=== PATIENT | female | born 1980 | race African-American/Black ===

== ENCOUNTER 2019-05-11 07:01 | Inpatient (IN) | payer MEDICARE ==
[2019-05-11] MEDS ORDERED: Magnesium 2 GM/50 ML BAG (IN WATER) ONE (07:17)
[2019-05-11] MEDS ORDERED: Dexamethasone 10 MG/ML VIAL ONE (07:18)
[2019-05-11] MEDS ORDERED: Albuterol Sulfate 2.5 mg/0.5 ml Neb ONE ×2 (07:22)
[2019-05-11 07:45] LABS: Actual Bicarbonate (HCO3a) 24.2 mEq/L (22-28); Analyzer IN Cardio ER; Base Excess (BEa) -2.6 mEq/L (-2.0 to +3.0); CO2 Tension 51.5 mmHg (35.0-45.0); Calcium, Ionized 1.15 mmol/L (1.12-1.30); Carboxyhemoglobin (COHb) 0.6 gm% (0.0-3.0); Hemoglobin (Hb) 9.6 g/dL (12.0-16.0); O2 Tension (PaO2) 61.2 mmHg (80.0-100.0); Potassium - ABG Lab 4.25 mmol/L (3.70-5.30); pH, Arterial 7.29 (7.35-7.45)
[2019-05-11 07:47] LABS: ALV-art Gradient 102.585 (0-20); Puncture Site RRA
--- NOTE | 2019-05-11 08:30 | PDOC.FPRHP ---
- History of Present Illness Chief Complaint: SOB History of Present Illness: 38 yo female with known history of asthma and MG presents for evaluation of acute onset SOB. Patient reports she has felt increasing cough and SOB over the last 2-3 days and then she developed sudden worsening of her symptoms overnight. She then presented to ED in [place] for transfer to [facility]. She reports being compliant with all of her medications including her albuterol and steroids at home. She notes that she feels much better with the O2 in the nose at this time. She reports pain in her chest during this time as well. She does admit to diarrhea, but no fevers, sputum production, or vomiting. No other complaints. ED Course: CXR showed left pneumectomy CTA chest showed no PE 750 ml Levaquin 1L NS - Allergies/Adverse Reactions Allergies Allergy/AdvReac Type Severity Reaction Status Date / Time No Known Allergies Allergy Verified 05/11/19 10:38 - Home Medications Medication Instructions Recorded Confirmed Type Albuterol Sulfate [Proventil Hfa] 2 puff INH Q4HR PRN 08/05/16 05/11/19 History Beclomethasone 80 mcg/puff [Qvar] 2 puff INH BID 08/05/16 05/11/19 History Acetaminophen W/ Codeine 2 tab PO Q4H PRN 05/11/19 05/11/19 History [Acetaminophen/Codeine #3] Albuterol Sulfate [Proair HFA] 1 - 2 puff INH Q4HR PRN 05/11/19 05/11/19 History Budesonide-Formoterol [Symbicort 2 puff INH BID 05/11/19 05/11/19 History 160-4.5] FLUoxetine HCl [Sarafem] 20 mg PO HS 05/11/19 05/11/19 History Gabapentin 300 mg PO TID 05/11/19 05/11/19 History OLANZapine 1 tab PO Q6HR PRN 05/11/19 05/11/19 History Pyridostigmine [place] [Mestinon] 60 mg PO TID 05/11/19 05/11/19 History QUEtiapine Fumarate [SEROquel] 50 mg PO HS 05/11/19 05/11/19 History azaTHIOprine 2 tab PO BID 05/11/19 05/11/19 History predniSONE 2 tab PO QAM 05/11/19 05/11/19 History - History PMHx: Myasthenia Gravis, Malignant Thymoma, Asthma, Sickle cell trait PSHx: Left pneumectomy, tubal ligation, mediport placement FHx: Not assessed Social: Denies alcohol, drug, or tobacco use. Former smoker and quit approximately 1 year ago. - Review of Systems General: denies: fever/chills, weight/appetite/sleep changes ENT: denies: nasal congestion, rhinorrhea Respiratory: reports: cough, shortness of breath Cardiovascular: reports: chest pain. denies: palpitation, edema Gastrointestinal: reports: diarrhea. denies: nausea, vomiting Genitourinary: denies: incontinence, dysuria Skin: denies: rashes, lesions Musculoskeletal: denies: pain, tenderness, stiffness Neurological: denies: numbness, syncope Psychological: denies: anxiety, depression - Vital signs BP: 110/56 HR: 93 RR: 28 Tmax: 98.3 Pox: 98% on RoomAir Wt: 106 kg - Physical Exam Constitutional: NAD, awake, alert and oriented HEENT: normocephalic and atraumatic, PERRLA, grossly normal vision, grossly normal hearing, normal nasal mucosa -HEENT: [place] Neck: supple, FROM Heart: RRR, normal S1/S2 Lungs: CTAB, no respiratory distress, good air movement, no wheezing -Lungs: No breath sounds on left chest. Abdomen: soft, non-tender, bowel sounds present, no masses/distention Musculoskeletal: normal structure, normal tone Neurological: no focal deficit, CN II-XII intact, normal sensation Skin: no rash/lesions, good turgor, capillary refill <2 seconds Heme/Lymphatic: no unusual bruising or bleeding Psychiatric: normal mood and affect, good judgment and insight, intact recent and remote memory FMR H&P: Results - Labs Lab results: ABG pH 7.29 (7.35-7.45) L 05/11/19 07:40 ABG pCO2 51.5 mmHg (35.0-45.0) H 05/11/19 07:40 ABG pO2 61.2 mmHg (80.0-100.0) L 05/11/19 07:40 Lactic Acid 0.8 mmol/L (0.5-2.2) 05/11/19 07:21 - EKG Interpretation EK lead EKG shows normal sinus rhythm, Rate (beats per minute): 94, Conduction normal, T waves, T wave abnormality, consider lateral ischemia, [place] normal, inferior infarct, age undetermined, possible left atrial enlargement, cannot rule out Anterior infarct, age undetermined. - Radiology Interpretation Chest x-ray Status: image reviewed by me (Previous left pneumectomy. No acute Cardiopulmonary process) FMR H&P: A/P - Problem List (1) Asthma exacerbation Current Visit: Yes Status: Acute Code(s): J45.901 - UNSPECIFIED ASTHMA WITH (ACUTE) EXACERBATION (2) Myasthenia gravis status post thymectomy Current Visit: Yes Status: Acute Code(s): G70.00 - MYASTHENIA GRAVIS WITHOUT (ACUTE) EXACERBATION; Z90.89 - ACQUIRED ABSENCE OF OTHER ORGANS (3) Chest pain Current Visit: No Status: Acute Code(s): R07.9 - CHEST PAIN, UNSPECIFIED - Plan Asthma exacerbation - Increase steroids during this time - Nebulizers scheduled Myasthenia Gravis - Not in Crisis - Consider IVIG if symptoms persist or worsen - Continue home regimen - Will review records from clinic to determine extent of workup previously Chest Pain - Likely secondary to above - Trend troponins PCP: DEIDRE Beatty CODE STATUS: FULL CODE Disposition: Stable, will admit to Telemetry for further monitoring and evaluation. Addendum - Attending - Attending Attestation Date/Time: 05/11/19 [id number] I personally evaluated the patient in the ER and discussed the management with Dr. Ortiz I agree with the History, Examination, Assessment and Plan documented above with any addition or exceptions noted below. 38 yo asthmatic female with history of malignant thymoma s/p chemo and recent left total pneumonectomy. Patient with chronic steroid use will need stressed dosed steroids. History of myasthenia gravis on mestinon. Patient presenting with exacerbation of asthmatic bronchitis she is sating well but has limited reserve based on single lung. Consult Pulmonary if any lack of predicted response to current therapy.
[2019-05-11 10:57] VITALS: BMI 37.8
[2019-05-11] MEDS ORDERED: Ondansetron ODT 4 MG TAB PO PRN (10:57)
[2019-05-11] MEDS ORDERED: Hydrocortisone Sod Succ/PF 100 mg/2 ml Vial IVP SCH (10:57)
[2019-05-11 11:25] LABS: Troponin I 0.022 ng/mL (< 0.028)
[2019-05-11] MEDS: Acetaminophen 325 MG TAB PO PRN (11:55)
[2019-05-11] MEDS ORDERED: PROVENTIL INHALER 6.7 G (200 INHALATIONS) INH PRN (14:01)
[2019-05-11] MEDS: Albuterol Sulfate 2.5 mg/3 ml Neb NEB SCH ×3 (14:30→22:21)
[2019-05-11] MEDS: Gabapentin 300 MG CAP PO SCH ×2 (16:21→20:29)
[2019-05-11] MEDS: Pyridostigmine Bromide IR 60 MG TAB PO SCH ×2 (16:21→20:28)
[2019-05-11] MEDS: Acetaminophen/Codeine 30-300mg Tablet PO PRN ×2 (16:27→20:30)
[2019-05-11] MEDS: Mometasone/Formoterol 120 PUFF INHALER INH SCH (18:18)
[2019-05-11] MEDS: OLANZapine 5 MG TAB PO PRN (20:28)
[2019-05-11] MEDS: azaTHIOprine 50 MG TAB PO SCH (20:29)
[2019-05-11] MEDS ORDERED: BECLOMETHASONE INH SCH (21:00)
[2019-05-11] MEDS ORDERED: FLUoxetine HCl 20 MG CAP PO SCH (22:15)
[2019-05-12] MEDS: Albuterol Sulfate 2.5 mg/3 ml Neb NEB SCH ×2 (02:24→06:57)
[2019-05-12] MEDS: Acetaminophen/Codeine 30-300mg Tablet PO PRN ×3 (06:26→17:04)
[2019-05-12] MEDS: Mometasone/Formoterol 120 PUFF INHALER INH SCH (07:07)
--- NOTE | 2019-05-12 07:57 | PDOC.FM ---
- Subjective Subjective: Doing well this morning, no acute events overnight. States SOB has improved but still gets winded when walking around room. No fever/chills/cough/CP/n/v. Tolerating PO well. Voiding and stooling normally. Eager for discharge this afternoon if does well today. - Objective MAR Reviewed: Yes Vital Signs & Weight: Vital Signs (12 hours) Temp Pulse Resp BP Pulse Ox 05/12/19 07:07 90 16 05/12/19 07:05 98 05/12/19 06:57 90 16 05/12/19 04:30 97.5 F L 93 16 117/60 95 05/12/19 02:24 90 20 94 L 05/11/19 22:21 99 24 H 94 L Weight Weight 107.048 kg I&O: 05/11/19 05/12/19 05/13/19 06:59 06:59 06:59 Intake Total 1200 Output Total 850 Balance 350 EKG Reviewed by me: Yes (Tele: NSR) Phys Exam - Physical Examination Constitutional: NAD (resting comfortably) HEENT: moist MMs Neck: supple Respiratory: no wheezing, no rales, no rhonchi, clear to auscultation bilateral (good aeration) Cardiovascular: RRR, no significant murmur, no rub Gastrointestinal: soft, non-tender, no distention, positive bowel sounds Musculoskeletal: pulses present, edema present (1+ to ankles) Neurological: non-focal, moves all 4 limbs Psychiatric: normal affect, A&O x 3 Dx/Plan (1) Asthma exacerbation Code(s): J45.901 - UNSPECIFIED ASTHMA WITH (ACUTE) EXACERBATION Status: Chronic (2) Myasthenia gravis status post thymectomy Code(s): G70.00 - MYASTHENIA GRAVIS WITHOUT (ACUTE) EXACERBATION; Z90.89 - ACQUIRED ABSENCE OF OTHER ORGANS Status: Chronic (3) Chest pain Code(s): R07.9 - CHEST PAIN, UNSPECIFIED Status: Acute - Plan Plan: 38yo F with h/o Asthma, MG, and SS trait presents with mild asthma exacerbation and chest pain #Asthma exacerbation - Weaned to RA this AM, lung exam normal this AM. Home O2 test. Walking program. - Stress dose steroids during this time - Nebulizers scheduled - cont home meds - States has daily sxs at home, needs to f/u for Spirometry and adjustments of medications with PCP #Myasthenia Gravis - Not in Crisis - Consider IVIG if symptoms persist or worsen - Continue home regimen - Will review records from clinic to determine extent of workup previously #Chest Pain, resolved - Likely secondary to above - Trops neg. EKG WNL. No acute events on tele Code: Full Diet: Regular IVF: SL PCP: DEIDRE Beatty Disposition: Stable, improved. Just weaned to RA this AM. Will monitor and consider d/c this PM pending clinical course. Addendum - Attending - Attending Attestation Date/Time: 05/12/19 [id number] I personally evaluated the patient and discussed the management with Dr. Shant Royal I agree with the History, Examination, Assessment and Plan documented above with any addition or exceptions noted below. Patient will f/u at [facility] has appt set up already. Home on increased prednisone next 2 days.
[2019-05-12] MEDS ORDERED: Albuterol Sulfate 2.5 mg/3 ml Neb NEB PRN (08:50)
[2019-05-12] MEDS ORDERED: Enoxaparin Sodium 30 MG/0.3 ML SYRINGE SC SCH (09:00)
[2019-05-12] MEDS ORDERED: Hydrocortisone Sod Succ/PF 100 mg/2 ml Vial IVP SCH (09:00)
[2019-05-12] MEDS: Pyridostigmine Bromide IR 60 MG TAB PO SCH ×4 (09:02→15:31)
[2019-05-12] MEDS: azaTHIOprine 50 MG TAB PO SCH (09:07)
[2019-05-12] MEDS: Gabapentin 300 MG CAP PO SCH ×2 (09:08→15:31)
[2019-05-12] MEDS: OLANZapine 5 MG TAB PO PRN ×2 (09:09→15:32)
[2019-05-12 12:33] VITALS: TEMP 97.9
[2019-05-12] MEDS: Acetaminophen 325 MG TAB PO PRN (15:32)
[2019-05-12 17:00] VITALS: BP 109/55
[2019-05-12] MEDS ORDERED: FLUoxetine HCl 20 MG CAP PO SCH (21:00)
--- NOTE | 2019-05-13 13:34 | DIS ---
DATE OF ADMISSION: 05/11/2019 DATE OF DISCHARGE: 05/12/2019 RESIDENT: Kevin Royal MD. ADMITTING ATTENDING: Billy Au MD. DISCHARGE ATTENDING: Billy Au MD. CONSULTS: None. PROCEDURES: None. PRIMARY DIAGNOSIS: Asthma exacerbation. SECONDARY DIAGNOSES: 1. Myasthenia gravis. 2. Chest pain, resolved. DISCHARGE MEDICATIONS: 1. Proventil 200 two puff inhalation q.4 hours p.r.n. 2. Symbicort 160/4.5 two puffs b.i.d. 3. Prozac 20 mg p.o. at bedtime. 4. Zyprexa 1 tablet p.o. q.6 hours p.r.n. 5. Azathioprine 100 mg p.o. b.i.d. 6. Seroquel 50 mg p.o. at bedtime. 7. Prednisone 20 mg two tablets p.o. q.a.m. 8. Gabapentin 300 mg p.o. t.i.d. 9. Tylenol No. 3, two tablets q.4 hours p.r.n. 10. Vistaril 25 mg p.o. q.i.d. p.r.n. 11. Pyridostigmine 180 mg p.o. t.i.d. Discontinued medications, none. HISTORY OF PRESENT ILLNESS AND HOSPITAL COURSE: The patient is a 38-year-old female with known history of asthma and Myasthenia gravis, who presented for evaluation of acute shortness of breath. She stated that she had increasing cough, shortness of breath over the last 2 to 3 days and developed suddenly worsening of her symptoms overnight. She presented to the ED at [place] and then transferred to [facility] for further evaluation and management. She reports being compliant with all of her medications at home. She states that she feels much better with O2 supplementation. She reports she had chest pain during this time, however, reports no fevers, sputum production, vomiting, recent sick contacts, cough, congestion, rhinorrhea. She has no other complaints. A chest x-ray at [place] demonstrated a left pneumonectomy. CTA of the chest showed new PE. She was given 750 mg of Levaquin and 1 L normal saline bolus, and was admitted for further evaluation and management. Initial vital signs showed the patient's saturating 98% on room air and the remainder of vitals within normal limits. A lung exam was unremarkable other than breath sounds on the left side, status post pneumonectomy. EKG was within normal limits. Troponins were trended and negative x2. Lactic acid was 0. It did not appear the patient was in a myasthenia gravis flare as she had no fatigability, no diplopia, eye fatigue, dysphagia or shortness of breath. Thus it was determined that the patient had a mild COPD exacerbation , was admitted for further evaluation and management. Regarding the patient's asthma exacerbation, she was placed on O2 for comfort; however, this was weaned to room air with no desaturations and was saturating 98 % to 100%. She had an unremarkable lung exam. She was given stress dose steroids and scheduled nebulizer treatments and her home medications were continued. She was monitored overnight without any acute events and was doing well from a respiratory standpoint. She reports that her breathing was at baseline and that she does have some underlying anxiety that could be contributing to her shortness of breath and chest pain. Her chest pain did completely resolve once on to the floor. I have discussed the patient could benefit from adjustment of her depression medications and she was given a prescription for p.r.n. Vistaril. We also discussed that the patient would benefit from continued stress dose of steroids at approximately 60 mg a day for the next 2 to 3 days and then can return to her normal prednisone dosing. At the time of discharge, the patient was doing very well at her baseline, ambulating without difficulty and had complete resolution of her chest pain. She was eager for discharge and discharge plan was discussed with the patient including the need to follow up with her neurologist for routine followup and primary care physician within 1 week. The patient could also benefit from spirometry testing for definitive diagnosis of asthma and adjustment of her medication regimen. All questions were answered appropriately and the patient was eager to be discharged home. DISPOSITION: Stable. DISCHARGE INSTRUCTIONS: 1. Location: Home. 2. Diet: As tolerated. 3. Activity: As tolerated. 4. Followup: The patient to follow up with her neurologist and neurosurgeon as previously directed and her primary care physician within 1 week of discharge. Job ID: [id number] [facility]
--- NOTE | 2019-05-13 15:33 | EKG ---
Test Reason : Blood Pressure : / mmHG Vent. Rate : 094 BPM Atrial Rate : 094 BPM P-R Int : 134 ms QRS Dur : 070 ms QT Int : 364 ms P-R-T Axes : 059 -01 117 degrees QTc Int : 455 ms Normal sinus rhythm Possible Left atrial enlargement Inferior infarct , age undetermined Cannot rule out Anterior infarct , age undetermined T wave abnormality, consider lateral ischemia Abnormal ECG Confirmed by KRYSTIAN GALARZA, FLORECITA ([id number]), market editor ZACH LANGLEY ([id number]) on 05/13/2019 3:32:55 PM Referred By: Confirmed By:FLORECITA BOLAND MD
== END 2019-05-12 17:28 | disposition home or self-care (01) | DRG 202 ==
LOC: ERS 07:01 → 2NO 07:59
PROVIDERS: ADMIT Family Medicine; ATTEND Family Medicine
DX: J45.901 Unspecified asthma with (acute) exacerbation (principal); J44.1 Chronic obstructive pulmonary disease with (acute) exacerbation; G70.00 Myasthenia gravis without (acute) exacerbation; Z79.899 Other long term (current) drug therapy; Z79.51 Long term (current) use of inhaled steroids; Z79.52 Long term (current) use of systemic steroids; Z90.2 Acquired absence of lung [part of]; Z85.238 Personal history of other malignant neoplasm of thymus
CPT/HCPCS: 36415; 82805; 83605; 87040; 87804; 93005; 94640; 96361; 96365; 96368; 96375; J1100; J1650; J1720; J1956; J3475; J7500; J7611; J7620